=== PATIENT | female | born 1975 | race Caucasian/White ===

== ENCOUNTER 2016-10-13 13:23 | Emergency (ER) | payer OTHER ==
[2016-10-13 15:14] VITALS: BP 126/80
[2016-10-13 16:22] LABS: Basophils % (Auto) 0.5 % (0.0-1.8); Eosinophils % (Auto) 1.2 % (0.0-4.3); Hemoglobin 14.2 gm/dl (10.1-14.3); Mean Corpuscular HGB Conc 32 % (30-34); Mean Corpuscular Hemoglobin 29 pg (28-32); Mean Corpuscular Volume 90 fl (79-97); Platelet Count 253 K/mm3 (140-440); Red Blood Count 4.91 M/mm3 (3.65-5.03); Red Cell Distribution Width 14.4 % (13.2-15.2); White Blood Count 7.5 K/mm3 (4.5-11.0)
[2016-10-13 16:40] LABS: Alanine Aminotransferase 14 units/L (7-56); Albumin 4.3 g/dL (3.9-5); Albumin/Globulin Ratio 1.3 %; Alkaline Phosphatase 101 units/L (35-129); Anion Gap 19 mmol/L; Bilirubin,Total 0.3 mg/dL (0.1-1.2); Blood Urea Nitrogen 9 mg/dL (7-17); Calcium 9.1 mg/dL (8.4-10.2); Carbon Dioxide 27 mmol/L (22-30); Chloride 98.5 mmol/L (98-107); Glucose 91 mg/dL (65-100); Lipase 31 units/L (13-60); Sodium 140 mmol/L (137-145); Total Protein 7.6 g/dL (6.3-8.2)
[2016-10-13 18:10] LABS: Bilirubin,Urine NEG (Negative); Blood,Urine NEG (Negative); Ketones,Urine NEG (Negative); Leukocyte Esterase,Urine TR (Negative); Nitrite,Urine NEG (Negative); Protein,Urine <15 mg/dL mg/dL (Negative); Urobilinogen,Urine < 2.0 mg/dL (<2.0); WBC,Urine < 1.0 /HPF (0.0-6.0)
--- NOTE | 2016-10-15 20:34 | ED Elopement Review ---
ED Pt Elopement review - Results review Lab results: Laboratory Tests 10/13/16 10/13/16 10/13/16 15:43 15:43 17:44 WBC 7.5 RBC 4.91 Hgb 14.2 Hct 44.0 H MCV 90 MCH 29 MCHC 32 RDW 14.4 Plt Count 253 Lymph % (Auto) 28.6 [place] % (Auto) 5.6 Eos % (Auto) 1.2 Baso % (Auto) 0.5 Lymph # 2.1 [place] # 0.4 Eos # 0.1 Baso # 0.0 Seg Neutrophils % 64.1 Seg Neutrophils # 4.8 Sodium 140 Potassium 4.0 Chloride 98.5 Carbon Dioxide 27 Anion Gap 19 BUN 9 Creatinine 0.5 L Estimated GFR > 60 BUN/Creatinine Ratio 18.00 Glucose 91 Calcium 9.1 Total Bilirubin 0.3 AST 16 ALT 14 Alkaline Phosphatase 101 Total Protein 7.6 Albumin 4.3 Albumin/Globulin Ratio 1.3 Lipase 31 Urine Color Straw Urine Turbidity Slightly-cloudy Urine pH 6.0 Ur Specific [place] 1.004 Urine Protein <15 mg/dl Urine Glucose (UA) Neg Urine Ketones Neg Urine Blood Neg Urine Nitrite Neg Ur Reducing Substances Not Reportable Urine Bilirubin Neg Urine Ictotest Not Reportable Urine Urobilinogen < 2.0 Ur Leukocyte Esterase Tr Urine WBC (Auto) < 1.0 Urine RBC (Auto) 1.0 U Epithel Cells (Auto) 6.0 Urine HCG, Qual Negative - Call Back decision Pt Call Back Decision: No action required
== END 2016-10-13 20:30 | disposition left against medical advice (07) ==
LOC: ED 13:23
DX: R10.30 Lower abdominal pain, unspecified (principal); R10.10 Upper abdominal pain, unspecified; Z53.21 Procedure and treatment not carried out due to patient leaving prior to being seen by health care provider
CPT/HCPCS: 36415; 80053; 81001; 81025; 83690; 85025